=== PATIENT | female | born 1975 | race Hispanic/Latino ===

== ENCOUNTER 2021-10-15 13:11 | Emergency (ER) | payer BC ==
[~2021-10-15] VITALS: Ht 160 cm; Wt 86.2 kg
[2021-10-15] MEDS ORDERED: ACYCLOVIR800 MG PO (13:28)
[2021-10-15] MEDS ORDERED: PREDNISONE50 MG PO (13:28)
== END 2021-10-15 13:35 | disposition home or self-care (01) ==
LOC: ER 13:15
DX: G51.0 Bell's palsy (principal)
CPT/HCPCS: 99282

== ENCOUNTER → 2024-01-13 | Outpatient (REF) | payer BC ==
[~2024-01-13] MED LIST: ACYCLOVIR800 MG PO; PREDNISONE10 MG PO; PREDNISONE50 MG PO; VALTREX1000 MG PO
== END ==
LOC: MAMMO 15:32
PROVIDERS: ATTEND Internal Medicine
DX: Z12.31 Encounter for screening mammogram for malignant neoplasm of breast (principal); Z13.820 Encounter for screening for osteoporosis; E28.319 Asymptomatic premature menopause
CPT/HCPCS: 77067; 77080

== ENCOUNTER → 2024-08-06 | Day surgery (SDC) | payer BC ==
[2024-07-30 16:31] LABS: BASOPHILS # (AUTO) 0.1 (0.0-0.1); EOSINOPHILS # (AUTO) 0.1 (0.0-0.4); EOSINOPHILS % 1.7 % (0.0-6.0); HEMATOCRIT 41.9 % (34.2-44.1); HEMOGLOBIN 13.9 g/dL (12.0-16.0); LYMPHOCYTES # (AUTO) 3.6 (1.0-3.2); LYMPHOCYTES % 42.8 % (18.0-39.1); MEAN CORPUSCULAR HEMOGLOBIN 29.3 pg (28-32); MEAN CORPUSCULAR HGB CONC 33.2 g/dL (31-35); MEAN CORPUSCULAR VOLUME 88.2 fL (81-99); MONOCYTES # (AUTO) 0.6 (0.2-0.8); MONOCYTES % 7.1 % (4.4-11.3); NEUTROPHILS % 47.3 % (38.7-80.0); PLATELET COUNT 242 x10e3/uL (140-360); RED BLOOD COUNT 4.75 x10e6/uL (3.6-5.1); RED CELL DISTRIBUTION WIDTH 13.2 % (11.7-14.4); WHITE BLOOD COUNT 8.42 x10e3/uL (4.8-10.8)
[2024-07-30 16:57] LABS: ALBUMIN 4.8 g/dL (3.5-5.0); ALBUMIN/GLOBULIN RATIO 1.5 (0.8-2.0); ANION GAP 15.7 mmol/L (8-16); BILIRUBIN,TOTAL 0.4 mg/dL (0.2-1.2); CALCIUM 9.4 mg/dL (8.4-10.2); CREATININE, SERUM 0.74 mg/dL (0.57-1.11); POTASSIUM 3.7 mmol/L (3.5-5.1)
[~2024-08-06] MED LIST changes: +ACETAMINOPHEN 1000 MG/100 ML 100 ML IV ONE; +CEFAZOLIN SODIUM 0 GM ONE; +CEFAZOLIN SODIUM 2 GM ONE; +CRESTOR40 MG PO; +DEXAMETHASONE SOD PHOS INJ 4 MG/ML SDV ONE; +FAMOTIDINE 20 MG/2 ML VIAL IV ONE; +FENTANYL CITRATE/PF 100MCG/2 ML INJ ONE; +LIDOCAINE HCL 2% LOCAL INJ 5 ML SDV VIAL INJ ONE; +MELOXICAM7.5 MG PO; +METFORMIN HCL500 MG PO; +ONDANSETRON HCL INJ 2MG/ML 2ML 2 MG/ML VIAL ONE; +PROPOFOL IV EMULSION 10 MG/ML 20 ML VIAL ONE; +SEVOFLURANE INHAL SOLN 250 ML PEN BTL ONE; +TRICOR145 MG PO
[2024-08-06] MEDS: LACTATED RINGER'S 1,000 ML ONE (05:46)
[2024-08-06 08:48] VITALS: TEMP 97.1
[2024-08-06] MEDS: FENTANYL CITRATE/PF 100MCG/2 ML INJ ONE (08:56)
[2024-08-06 10:00] VITALS: BP 158/78; PULSE 70; RESP 16; O2SAT 97
== END | disposition home or self-care (01) ==
LOC: OR 05:30
PROVIDERS: ATTEND Orthopaedic Surgery
DX: S83.231A Complex tear of medial meniscus, current injury, right knee, initial encounter (principal); M23.41 Loose body in knee, right knee; S83.281A Other tear of lateral meniscus, current injury, right knee, initial encounter; M22.41 Chondromalacia patellae, right knee; M65.161 Other infective (teno)synovitis, right knee; M67.51 Plica syndrome, right knee; E11.9 Type 2 diabetes mellitus without complications; E78.5 Hyperlipidemia, unspecified; G51.0 Bell's palsy; X58.XXXA Exposure to other specified factors, initial encounter; Z88.0 Allergy status to penicillin; Z01.810 Encounter for preprocedural cardiovascular examination; Z01.812 Encounter for preprocedural laboratory examination; Z79.1 Long term (current) use of non-steroidal anti-inflammatories (NSAID); Z79.84 Long term (current) use of oral hypoglycemic drugs; Z79.899 Other long term (current) drug therapy
CPT/HCPCS: 29879; 29882; 36415; 80053; 81025; 85025; 93005; C1713; J0131; J1100; J2003; J2405; J2704; J3010; J7121